=== PATIENT | female | born 1990 | race Caucasian/White ===

== ENCOUNTER 2022-01-27 09:51 | Emergency (ER) | payer OTHER, SELFPAY ==
[2022-01-27 09:54] VITALS: BP 125/68; PULSE 70; RESP 18; TEMP 36.6; O2SAT 100; BMI 32.3
--- NOTE | 2022-01-27 11:02 | ED_ITS ---
HPI - Skin/Abscess/Foreign Bdy General Chief complaint: Wound/Laceration Stated complaint: vaginal cyst Time Seen by Provider: 01/27/22 11:01 Source: patient Mode of arrival: ambulatory Limitations: no limitations History of Present Illness MD complaint: abscess/boil Onset (ago): week(s) (1) Location: genitals (left labia ) Severity: severe Severity scale (1-10): >10 Quality: aching Pain Consistency: constant Relieving factors: none Exacerbating factors: palpation Context: none Associated symptoms: denies other symptoms Treatments prior to arrival: none Related Data Previous Rx's Medication Instructions Recorded cephalexin 500 mg capsule 500 mg PO Q6H 10 days #40 caps 01/27/22 doxycycline monohydrate 100 mg 100 mg PO BID 10 days #20 caps 01/27/22 capsule ibuprofen 800 mg tablet 800 mg PO Q8H PRN pain #14 tabs 01/27/22 oxycodone 5 mg tablet 5 mg PO Q6H PRN pain #14 tabs 01/27/22 Allergies Allergy/AdvReac Type Severity Reaction Status Date / Time No Known Allergies Allergy Verified 01/27/22 11:01 Review of Systems Review of Systems: Constitutional : Denies history of same, Denies any other sites involved, Denies IV drug use, Denies history of MRSA, Denies swollen glands, Denies injury, Denies Fever, Denies Chills, + Sig Pain, Denies Systemic symptoms Cardiovascular : No Chest Pain, No SOB Respiratory : No Dyspnea Gastrointestinal : No abdominal pain Musculoskeletal : No Joint Swelling Skin : + abscess with surrounding erythema, No skin laceration, No Foreign bodies, No spreading rash, Denies bites, Denies discharge, Neuro : No Weakness, No Numbness/tingling Psych : No SI/HI/thoughts of self injury Yes all other systems are reviewed and are negative PMFSH Past Medical History Attestation statement: The following information was validated with the patient. Source: old records reviewed and nursing notes reviewed Social History Social History Advance Directives: No Advance Directives Information Provided: No Physical Exam Vital Signs: Vital Signs: Last Vital Signs Temp 98 F 01/27/22 09:54 Pulse 70 01/27/22 09:54 Resp 18 01/27/22 09:54 BP 125/68 01/27/22 09:54 Pulse Ox 100 01/27/22 09:54 O2 Del Method 01/27/22 09:54 BMI result Body Mass Index 32.3 vital signs have been reviewed as normal and appeared to be correct. Blood pressure normal. Heart rate normal. Respiration rate normal. Temperature normal. Oxygen saturation normal. Appearance: Alert. Oriented X3. No acute distress. Head: Normal external exam. Normocephalic. Atraumatic. Eyes: PERRLA. EOMI. Conjunctiva and sclera normal. Eyelids normal. ENT: Pharynx normal. Uvula midline. Moist mucous membranes. Neck: Normal inspection. Neck supple. FROM. No adenopathy.No meningeal signs. CVS: Normal heart rate and rhythm Respiratory: No respiratory distress. Painless inspiration. : Supervised by JOHNNY Sarah. to the left labia patient has a fluctuant abscess with mild surrounding erythema. Not consistent with bartholin abscess. No foreign bodies are noted. No purulent drainage noted at this time. no streaking or induration noted. Back: Full range of motion noted. Skin: Skin warm and dry. Normal skin color. Normal skin turgor. No rashes/ lesions/lacerations noted. Extremities: Extremities exhibit normal range of motion. Extremities nontender. Neuro: Oriented X 3. No motor deficit. No sensory deficit. Reflexes normal. Course Course Course Narrative: IMP/Plan: abscess. No systemic toxicity, and pt looks well. + surrounding cellu litis. Not c/w nec fasc/ myositis/ DVT/ osteomyelitis. patient now status post I&D of abscess and patient tolerated procedure well. No complications. No labs or imaging indicated at this time. Will DC home antibiotics and symptomatic treatment instructions return if any new or worsening symptoms to follow up with primary care provider. Patient understands agrees this plan. MDM - Skin/Abscess/Foreign Bdy Medical Records Attestation: I reviewed the patient's medical records. Procedures Abscess I/D Site: other ( Labia) Side (if applicable): left Local Anesthetic: lidocaine 1% Amount of anesthesia used (mL): 5 Technique: needle aspiration and incised with blade Amount of fluid expressed (mL): 10 Sent for culture/gram staining?: No Irrigation: Yes Packing used?: none Complications: other (no complications) Discharge Plan Discharge Clinical Impression: Abscess Patient Disposition: Home, Self-Care Instructions: Abscess Incision and Drainage (DC) Prescriptions: New oxycodone 5 mg tablet 5 mg PO Q6H PRN (Reason: pain) Qty: 14 0RF Rx Instructions: Partial Fill upon patient request. doxycycline monohydrate 100 mg capsule 100 mg PO BID 10 Days Qty: 20 0RF cephalexin 500 mg capsule 500 mg PO Q6H 10 Days Qty: 40 0RF ibuprofen 800 mg tablet 800 mg PO Q8H PRN (Reason: pain) Qty: 14 0RF Referrals: Rossy Garcia [employer] [Primary Care Provider] - 2 days Stand Alone Forms: Work/School Release
[2022-01-27] MEDS: Lidocaine HCl 1 % MPF 5 ML VIAL SUBCUT (11:58)
== END 2022-01-27 12:00 | disposition home or self-care (01) ==
PROVIDERS: Emergency Provider Emergency Medicine; PCP Nurse Practitioner
DX: N76.4 Abscess of vulva (principal)
CPT/HCPCS: 56405; 99283; 99284